=== PATIENT | female | born 1950 | race Caucasian/White ===

== ENCOUNTER → 2018-12-25 | Outpatient (CLI) | payer MEDICARE, OTHER ==
[~2018-12-25] MED LIST: ACEBUTCAFT; GABA300; PROP10; [UNRECOGNIZED DRUG - REMARK]
== END | disposition home or self-care (01) ==
LOC: PLD 10:52 → LAB SHORT 10:52
DX: D22.5 Melanocytic nevi of trunk (principal)
CPT/HCPCS: 88305

== ENCOUNTER 2019-09-11 07:43 | Day surgery (SDC) | payer MEDICARE, OTHER ==
[~2019-09-11] VITALS: Ht 165.1 cm; Wt 88.3 kg
[2019-09-11] MEDS ORDERED: OXAPROZIN PO (08:27)
[2019-09-11] MEDS ORDERED: PRAVASTATIN SOD20 MG PO (08:28)
--- NOTE | 2019-09-14 15:19 | NUR ---
09/14/19 1519 Randi Alonso ([place] SURGEON CONSULT 0820 ON 09/11/19.
== END 2019-09-11 09:55 | disposition home or self-care (01) ==
LOC: ORSCSDS 07:43
PROVIDERS: Orthopaedic Surgery
PROC: 0LN70ZZ Release Right Hand Tendon, Open Approach (ICD-10-PCS; principal; 2019-09-11 09:00)
DX: M65.331 Trigger finger, right middle finger (principal); E66.9 Obesity, unspecified; Z68.32 Body mass index [BMI] 32.0-32.9, adult; Z79.899 Other long term (current) drug therapy
CPT/HCPCS: J0171; J0690; J2250; J2704; J3010; J7120

== ENCOUNTER → 2020-07-11 | Outpatient (CLI) | payer MEDICARE, OTHER ==
[~2020-07-11] MED LIST changes: +OXAPROZIN PO; +PRAVASTATIN SOD20 MG PO
== END | disposition home or self-care (01) ==
LOC: LAB SHORT 07:15
DX: R10.32 Left lower quadrant pain (principal)
CPT/HCPCS: 81050

== ENCOUNTER 2022-08-11 09:44 | Emergency (ER) | payer MEDICARE, OTHER ==
[~2022-08-11] VITALS: Ht 165.1 cm; Wt 86.2 kg
[2022-08-11 10:17] LABS: BASOPHILS ABSOLUTE AUTO 0.05 K/mm3 (0.00-0.23); BASOPHILS PERCENT AUTO 1 % (0-2); EOSINOPHILS ABSOLUTE AUTO 0.22 K/mm3 (0.00-0.68); EOSINOPHILS PERCENT AUTO 4 % (0-6); Hematocrit 34.3 % (33.0-51.0); Hemoglobin 11.3 g/dL (11.5-16.0); IMMATURE GRAN ABSOLUTE AUTO 0.04 K/mm3 (0.00-0.10); IMMATURE GRAN PERCENT AUTO 1 % (0-1); LYMPHOCYTES ABSOLUTE AUTO 1.27 K/mm3 (0.84-5.20); LYMPHOCYTES PERCENT AUTO 24 % (21-46); MONOCYTES ABSOLUTE AUTO 0.38 K/mm3 (0.16-1.47); MONOCYTES PERCENT AUTO 7 % (4-13); Mean Corpuscular HGB 29.2 pg (26.0-34.0); Mean Corpuscular HGB Conc 32.9 g/dL (31.5-36.5); Mean Corpuscular Volume 89 fL (80-100); Mean Platelet Volume 8.8 fL (9.1-12.4); NEUTROPHILS ABSOLUTE AUTO 3.24 K/mm3 (1.96-9.15); NEUTROPHILS PERCENT AUTO 62 % (41-73); Platelet Count 259 K/mm3 (150-400); RDW Coefficient Variation 11.7 % (11.7-14.2); RDW Standard Deviation 37.2 fL (35.1-46.3); Red Blood Cell Count 3.87 M/mm3 (3.80-5.20)
[2022-08-11 10:38] LABS: Albumin, Blood 3.9 g/dL (3.4-5.0); Albumin/Globulin Ratio 1.3 (0.8-1.8); Bilirubin, Total 0.3 mg/dL (0.1-1.0); Calcium, Blood 8.9 mg/dL (8.5-10.1); Creatinine, Blood 0.7 mg/dL (0.40-1.00); Potassium, Blood 4.2 mmol/L (3.5-5.5); Total Protein, Blood 6.9 g/dL (6.4-8.2)
[2022-08-11 13:30] VITALS: BP 109/55
[2022-08-11] MEDS ORDERED: LOMOTIL 2.5-0.1 EACH PO (13:51)
[2022-08-11] MEDS ORDERED: DICLOFENAC SOD100 G1 TP (13:51)
[2022-08-11] MEDS ORDERED: Prinivil10 MG PO (13:51)
[2022-08-11] MEDS ORDERED: PRAV20 PO (13:52)
== END 2022-08-11 13:53 | disposition home or self-care (01) ==
LOC: ER 09:44
PROVIDERS: Student in an Organized Health Care Education/Training Program
DX: R07.9 Chest pain, unspecified (principal); I25.2 Old myocardial infarction; Z88.5 Allergy status to narcotic agent
CPT/HCPCS: 71045; 80053; 83690; 84484; 85025; 93005; 93010

== ENCOUNTER → 2024-06-23 | Outpatient (CLI) | payer MEDICARE, OTHER ==
[~2024-06-23] MED LIST changes: +DICLOFENAC SOD100 G1 TP; +LOMOTIL 2.5-0.1 EACH PO; +PRAV20 PO; +Prinivil10 MG PO
[2024-06-23 12:47] LABS: Stool Occult Bld Immuno 1 Positive (NEGATIVE)
== END ==
LOC: LAB SHORT 10:58 → LAB 10:58 → LAB FUT 06-18 13:50 → EDSTATUS 06-18 13:50
PROVIDERS: Legal Medicine
DX: R19.4 Change in bowel habit (principal); R19.5 Other fecal abnormalities
CPT/HCPCS: G0328